=== PATIENT | male | born 1990 | race African-American/Black ===

== ENCOUNTER 2022-04-09 15:25 | Emergency (ER) | payer MEDICARE, OTHER ==
[~2022-04-09] VITALS: Ht 182.9 cm; Wt 86.2 kg
[2022-04-09] MEDS ORDERED: HALOPERIDOL LACTATE INJ 5 MG/ML VIAL ONE ×2 (15:45→15:49)
[2022-04-09] MEDS ORDERED: diphenhydrAMINE HCL 50 MG/ML VIAL ONE (15:50)
[2022-04-09] MEDS ORDERED: diphenhydrAMINE HCL 50 MG/ML VIAL IV ONE (16:00)
[2022-04-09] MEDS ORDERED: HALOPERIDOL LACTATE INJ 5 MG/ML VIAL IVP ONE (16:00)
[2022-04-09] MEDS ORDERED: IV NS 0.9% 1,000 ML BAG IV ONE (16:00)
--- NOTE | 2022-04-09 16:00 | NUR ---
Pt rrestless/Uncooperative/Mumble/inappropriate an pulling at monitors. Sitter (Heladio) at direct line of sight for pt safety
[2022-04-09 16:36] LABS: BASOPHILS % (AUTO) 0.2 % (0.0-2.0); EOSINOPHILS % (AUTO) 0.2 % (0.0-6.0); HEMATOCRIT 40 % (39-51); HEMOGLOBIN 13.3 g/dL (13.5-17.5); LYMPHOCYTES # (AUTO) 0.7 K/uL (0.8-4.8); LYMPHOCYTES % (AUTO) 7.1 % (20.0-44.0); MEAN CORPUSCULAR HGB CONC 34 g/dl (31.0-36.0); MEAN CORPUSCULAR VOLUME 90 fL (80-96); MONOCYTES # (AUTO) 0.6 K/uL (0.1-1.30); MONOCYTES % (AUTO) 5.9 % (2.0-12.0); NEUTROPHILS # (AUTO) 8.3 K/uL (1.8-8.9); NEUTROPHILS % (AUTO) 86.6 % (43.0-81.0); PLATELET COUNT (AUTO) 229 K/uL (150-450); WHITE BLOOD COUNT (AUTO) 9.6 K/uL (4.3-11.0)
[2022-04-09 16:58] LABS: CALCIUM, SERUM 8.3 mg/dL (8.5-10.1); CREATININE 1.1 mg/dL (0.6-1.3); POTASSIUM 3.5 mmol/L (3.5-5.1)
[2022-04-09 17:04] LABS: ALBUMIN 3.9 g/dL (3.4-5.0); BILIRUBIN,DIRECT 0.1 mg/dL (0.0-0.2); BILIRUBIN,TOTAL 0.6 mg/dL (0.2-1.0); TOTAL PROTEIN, SERUM 6.9 g/dL (6.4-8.2)
--- NOTE | 2022-04-09 17:38 | NUR ---
Sleeping, easily awakened. NO obvious distress
[2022-04-09 17:53] LABS: BILIRUBIN,URINE NEGATIVE (NEGATIVE); COLOR,URINE YELLOW (YELLOW); LEUKOCYTE ESTERASE ,URINE NEGATIVE (NEGATIVE); NITRITE, URINE NEGATIVE (NEGATIVE); PROTEIN,URINE 30 mg/dl (NEGATIVE); UGLUCOSE NEGATIVE (NEGATIVE); UROBILINOGEN,URINE 0.2 EU/dL (0.2)
[2022-04-09 18:28] LABS: BACTERIA,URINE None seen /HPF (None Seen); SQUAMOUS EPITHELIAL CELL,UR 0-2 /HPF (None Seen); WBC,URINE 0-2 /HPF (0-3)
[2022-04-09 18:29] LABS: MUCUS,URINE Many /LPF (None Seen)
--- NOTE | 2022-04-09 19:26 | NUR ---
Endorsed care to SONDRA Cruz
[2022-04-09] MEDS ORDERED: LORAZEPAM INJ 2 MG/ML VIAL ONE (20:15)
[2022-04-09] MEDS ORDERED: LORAZEPAM INJ 2 MG/ML VIAL IV ONE (20:30)
--- NOTE | 2022-04-09 21:33 | NUR ---
pt taken to and returned from ct scan via anjum
--- NOTE | 2022-04-09 22:10 | NUR ---
BETSY COLLECTED AND SENT TO LAB
[2022-04-09] MEDS ORDERED: NALO4SPR BNOSTRILS (22:26)
--- NOTE | 2022-04-10 04:56 | NUR ---
PT SLEEPING COMFORTABLY BREATHING EVEN AND UNLABORED. PT REMAINS ON MONITOR AND V/S WNL.
--- NOTE | 2022-04-10 08:00 | NUR ---
Pt Awake appropriate to simple commands and moving all extremities purposefully. Breakfast given ate 100% able to tolerate po fluids and ambulate to the bathroom. Dr Montez [facility] for discharge
--- NOTE | 2022-04-10 08:30 | NUR ---
Pam ling in ED - 04/10/22 at 0849 by SARY NANCY MARTINEZ SEE PATIENT AT 1030 TODAY
--- NOTE | 2022-04-10 08:50 | NUR ---
Pt for discharge - Walked out without signing [facility]CI Gait steady
[2022-04-10 08:52] VITALS: BP 133/80
== END 2022-04-10 08:53 | disposition home or self-care (01) ==
LOC: ER 15:30
DX: T40.601A Poisoning by unspecified narcotics, accidental (unintentional), initial encounter (principal); R41.82 Altered mental status, unspecified; Y92.414 Local residential or business street as the place of occurrence of the external cause; F15.10 Other stimulant abuse, uncomplicated; R00.0 Tachycardia, unspecified; Z59.00 Homelessness unspecified; R94.31 Abnormal electrocardiogram [ECG] [EKG]; Z20.822 Contact with and (suspected) exposure to COVID-19
CPT/HCPCS: 36415; 70450; 71045; 80048; 80076; 80143; 80307; 80320; 81001; 82550; 82553; 85025; 87426; 93005; 96361; 96374; 96375; 99291; J1200; J1630; J2060; J7030; C9803; G0480

== ENCOUNTER 2022-06-11 09:57 | Emergency (ER) | payer MEDICARE, OTHER ==
[~2022-06-11] VITALS: Ht 177.8 cm; Wt 79.4 kg
[~2022-06-11 09:57] MED LIST: NALO4SPR BNOSTRILS
--- NOTE | 2022-06-11 10:10 | NUR ---
BIBS FOR JAVING [employer] WITH A PLAN TO RUN [employer]. THE PATIENT IS ALERT AND ORIENTED X3. DENIES HAVING VISUAL OR AUDITORY HALLUCINATION. DENIES HAVING HI. IN ROOM AIR AND DENIES SOB. RESPIRATION REGULAR AND UNLABORED. DENIES PAIN. WILL CONTINUE TO MONITOR THE PATIENT.
--- NOTE | 2022-06-11 10:11 | NUR ---
COVID ANTIGEN SWAB DONE AND SENT TO THE LAB
--- NOTE | 2022-06-11 10:11 | NUR ---
SECURITY IS CALLED IN FOR WANDING.
[2022-06-11 10:27] LABS: BILIRUBIN,URINE NEGATIVE (NEGATIVE); COLOR,URINE YELLOW (YELLOW); LEUKOCYTE ESTERASE ,URINE NEGATIVE (NEGATIVE); NITRITE, URINE NEGATIVE (NEGATIVE); PROTEIN,URINE NEGATIVE (NEGATIVE); UGLUCOSE NEGATIVE (NEGATIVE); UROBILINOGEN,URINE 0.2 EU/dL (0.2)
[2022-06-11 10:27] LABS: BASOPHILS # (AUTO) 0.1 K/uL (0.0-0.2); BASOPHILS % (AUTO) 0.8 % (0.0-2.0); EOSINOPHILS % (AUTO) 1.3 % (0.0-6.0); HEMATOCRIT 37 % (39-51); HEMOGLOBIN 12.4 g/dL (13.5-17.5); LYMPHOCYTES % (AUTO) 23.4 % (20.0-44.0); MEAN CORPUSCULAR HGB CONC 33 g/dl (31.0-36.0); MEAN CORPUSCULAR VOLUME 91 fL (80-96); MONOCYTES # (AUTO) 0.7 K/uL (0.1-1.30); MONOCYTES % (AUTO) 8.9 % (2.0-12.0); NEUTROPHILS # (AUTO) 5.5 K/uL (1.8-8.9); NEUTROPHILS % (AUTO) 65.6 % (43.0-81.0); PLATELET COUNT (AUTO) 299 K/uL (150-450); WHITE BLOOD COUNT (AUTO) 8.4 K/uL (4.3-11.0)
[2022-06-11 10:47] LABS: CALCIUM, SERUM 8.4 mg/dL (8.5-10.1); CARBON DIOXIDE 30 mmol/L (21-32); CHLORIDE 101 mmol/L (98-107); GLUCOSE 79 mg/dL (74-106); POTASSIUM 3.4 mmol/L (3.5-5.1); SODIUM SERUM 137 mmol/L (136-145); UREA NITROGEN, BLOOD 14 mg/dL (7-18)
[2022-06-11 11:00] LABS: ALANINE AMINOTRANSFERASE 29 U/L (12-78); ALBUMIN 3.3 g/dL (3.4-5.0); ALKALINE PHOSPHATASE 79 U/L (46-116); ASPARTATE AMINOTRANSFERASE 24 U/L (15-37); BILIRUBIN,DIRECT 0.1 mg/dL (0.0-0.2); BILIRUBIN,TOTAL 0.2 mg/dL (0.2-1.0); TOTAL PROTEIN, SERUM 7.1 g/dL (6.4-8.2)
[2022-06-11 11:01] LABS: ACETAMINOPHEN 0 ug/ml (10-30); ALCOHOL, BLOOD < 3 mg/dL (0-0)
[2022-06-11 16:04] VITALS: BP 124/70
--- NOTE | 2022-06-11 17:45 | NUR ---
FAXED PT CLINICALS TO [facility]
--- NOTE | 2022-06-11 18:19 | NUR ---
PER [facility] ESEQUIEL THE PATIENT IS ACCEPTED TO [facility] AND SHE WILL ARRANGE TRANSPO FOR THE PATIENT.
--- NOTE | 2022-06-11 19:37 | NUR ---
PT IS PICKED UP BY [facility]. ALL BELONGINGS AND PATIENT PACKETS GIVEN
== END 2022-06-11 19:40 ==
LOC: ER 10:02
DX: R45.851 Suicidal ideations (principal); Z20.822 Contact with and (suspected) exposure to COVID-19; Z59.00 Homelessness unspecified; F15.10 Other stimulant abuse, uncomplicated
CPT/HCPCS: 36415; 80048-TC; 80076-TC; 85025-TC; C9803; G0480